=== PATIENT | female | born 1970 | race Caucasian/White ===

== ENCOUNTER 2023-11-22 06:32 | Day surgery (SDC) | payer MEDICARE, MEDICAID ==
[2023-11-22] MEDS ORDERED: propofoL 50 ML ONE (06:50)
[2023-11-22] MEDS ORDERED: Water For Injection, Sterile 20 ML ONE (06:54)
[2023-11-22] MEDS: Lactated Ringers 1,000 ML IV SCH (06:58)
[2023-11-22] MEDS ORDERED: Magnesium Sulfate (4.06 MEQ/ML) 5 GM/10 ML SDV ONE (07:17)
[2023-11-22] MEDS ORDERED: Propofol 200 MG/20 ML SDV ONE (07:26)
[2023-11-22] MEDS ORDERED: Ketamine 500 mg/10 ML MDV ONE (07:45)
[2023-11-22] MEDS ORDERED: Lidocaine 2% 5 ML SDV ONE (07:52)
[2023-11-22] MEDS ORDERED: Lactated Ringers 1,000 ML IV SCH (08:45)
== END 2023-11-22 09:00 | disposition home or self-care (01) ==
LOC: MW.SDS 06:32
PROVIDERS: ATTEND Surgery
DX: Z12.11 Encounter for screening for malignant neoplasm of colon (principal); J45.909 Unspecified asthma, uncomplicated; F41.9 Anxiety disorder, unspecified; F32.A Depression, unspecified; E78.5 Hyperlipidemia, unspecified; M06.9 Rheumatoid arthritis, unspecified; Z79.891 Long term (current) use of opiate analgesic; Z79.899 Other long term (current) drug therapy
CPT/HCPCS: G0121; J2704; J3475; J3490; J7120